=== PATIENT | male | born 1965 ===

== ENCOUNTER 2020-03-09 09:57 | Outpatient (REF) | payer MEDICARE, MEDICAID, SELFPAY | END 2020-03-09 09:58 | disposition home or self-care (01) | LOC: HO.HAP 09:57 | PROVIDERS: PCP Internal Medicine; Referring Provider Internal Medicine; Visit Provider Internal Medicine | DX: Z46.1 Encounter for fitting and adjustment of hearing aid (principal) | CPT/HCPCS: V5266 ==

== ENCOUNTER 2020-06-28 10:54 | Outpatient (REF) | payer MEDICARE, MEDICAID, SELFPAY | END 2020-06-28 10:55 | disposition home or self-care (01) | LOC: HO.HAP 10:54 | PROVIDERS: Visit Provider Internal Medicine | DX: Z46.1 Encounter for fitting and adjustment of hearing aid (principal) | CPT/HCPCS: V5266 ==

== ENCOUNTER 2020-09-23 16:17 | Outpatient (REF) | payer MEDICARE, MEDICAID, SELFPAY | END 2020-09-23 16:18 | disposition home or self-care (01) | LOC: HO.HAP 16:17 | PROVIDERS: Visit Provider Internal Medicine | DX: Z46.1 Encounter for fitting and adjustment of hearing aid (principal); H90.3 Sensorineural hearing loss, bilateral | CPT/HCPCS: V5266 ==

== ENCOUNTER 2020-11-18 10:17 | Outpatient (REF) | payer MEDICARE, MEDICAID, SELFPAY ==
--- NOTE | 2020-11-18 13:32 | MHC.AU.HFU ---
Hearing Instrument Follow-Up- Binaural Date of Visit: 11/18/20 Right Ear: Neon Sign Installer: Phonak Model: Audeo B50-312 Serial Number: [id number] Repair Warranty: 09/09/2019 Loss and Damage Warranty: 09/09/2019 Battery Size: 312 Horizontal Boring Mill Operator: 1xS Type of Dome: Small Closed Type of Wax Guard: CeruStop Dispensed By: [facility] Date of Fittin06/19/2017 Left Ear: Neon Sign Installer: Phonak Model: CROS B-312 Serial Number: [id number] Repair Warranty: 09/09/2019 Loss and Damage Warranty: Loss and Damage used for the left instrument Battery Size: 312 Tubing: Size 1 slim CROS tube Type of Dome: Small Open Dispensed By: [facility] Date of Fittin06/19/2017 Follow-Up Summary: Patient was seen for audiological re-evaluation (see report for details). Patient has a slight overall decrease in his right-sided thresholds. Hearing aid maintenance performed. Domes replaced. Microphones vacuumed. Battery compartments cleaned. Possible rust noted in battery door of right hearing aid- put both instruments in the clothespin drier operator for several minutes as a precaution. Both instruments are working appropriately after maintenance. Hearing aid programming was updated with today's thresholds. Feedback manager field service was re-run. Patient was pleased with the change, and did not feel any additional adjustments were necessary. Recommendations: Hearing instrument follow-up or maintenance as needed. Please contact our clinic with any questions or concerns. Diagnosis Code(s): Primary Diagnosis: H90.3 Bilateral Sensorineural Hearing Loss Signature: Provider: Nain Hussein, RAJIV-A
--- NOTE | 2020-11-18 13:34 | MHC.AU.AHA ---
Adult Audiological Evaluation Date of Visit: 11/18/20 Reason for Appointment: History of asymmetrical hearing loss (left ear worse). Patient suspects he has had a change in hearing. He reports that, at work and home, people have been saying he is talking louder than usual. The last time people noticed him talking loudly was before he received his hearing aids. Patient has had profound sensorineural hearing loss in his left ear since 1999, after receiving blunt trauma to the left side of his head. Previous Hearing Test Results: At [facility] on 05/28/2017- Right: moderate rising to mild and sloping to severe sensorineural hearing loss. Left ear was not tested as a long-standing history of profound sensorineural hearing loss has already been established. Hearing Instrument History- Right Ear: Chief Load Dispatcher: [employer] Model: Audeo B50-312 Serial Number: [id number] Battery Size: 312 Repair Warranty: 09/09/2019 Loss and Damage Warranty: 09/09/2019 Dispensed By: [facility] Date of Fittin06/19/2017 Hearing Instrument History- Left Ear: Chief Load Dispatcher: Augustine Temperature Managementak Model: CROS B-312 Serial Number: [id number] Battery Size: 312 Warranty: 09/09/2019 Loss and Damage Warranty: Loss and Damage used for the left instrument Dispensed By: [facility] Date of Fittin06/19/2017 Otoscopy: Right Ear: Unremarkable Left Ear: Unremarkable Hearing Evaluation: Transducer(s) Used: Insert Earphones Method: Conventional Audiometry Stimuli Used: Pure Tones Right Ear: Description of Hearing: Mild to severe sensorineural hearing loss Left Ear: Description of Hearing: Profound sensorineural hearing loss Speech Recognition Threshold (SRT): Method Used: Recorded Lists Stimuli Used: Spondee Words Right Ear: 30 dBHL Left Ear: Did not test due to known profound hearing loss Word Discrimination: Method: Recorded Lists Word Lists Used: W-22 Right Ear: 100% at 70 dBHL Left Ear: Did not test due to known profound hearing loss Most Comfortable Level (MCL): Right Ear: 70 dBHL Left Ear: Did not test due to known profound hearing loss Comparison: Compared to the most recent evaluation: Thresholds have decreased in the right ear Recommendations: Audiological re-evaluation in one year. See Hearing Aid Follow-Up note for more information. Diagnosis: Primary Diagnosis: H90.3 Bilateral Sensorineural Hearing Loss Signature: Provider: Nain Hussein, RAJIV-A
== END 2020-11-18 10:18 | disposition home or self-care (01) ==
LOC: HO.SH 10:17
PROVIDERS: Visit Provider Internal Medicine
DX: Z46.1 Encounter for fitting and adjustment of hearing aid (principal); H90.3 Sensorineural hearing loss, bilateral
CPT/HCPCS: 92557; 92593

== ENCOUNTER 2021-01-18 15:11 | Outpatient (REF) | payer MEDICARE, MEDICAID, SELFPAY | END 2021-01-18 15:12 | disposition home or self-care (01) | LOC: HO.HAP 15:11 | PROVIDERS: Visit Provider Internal Medicine | DX: Z46.1 Encounter for fitting and adjustment of hearing aid (principal); H90.3 Sensorineural hearing loss, bilateral | CPT/HCPCS: V5266 ==

== ENCOUNTER 2021-04-28 13:35 | Outpatient (REF) | payer MEDICARE, MEDICAID, SELFPAY | END 2021-04-28 13:36 | disposition home or self-care (01) | LOC: HO.HAP 13:35 | PROVIDERS: Visit Provider Internal Medicine | DX: Z46.1 Encounter for fitting and adjustment of hearing aid (principal); H90.3 Sensorineural hearing loss, bilateral | CPT/HCPCS: V5266 ==

== ENCOUNTER 2021-07-28 14:10 | Outpatient (REF) | payer MEDICARE, MEDICAID, SELFPAY | END 2021-07-28 14:11 | disposition home or self-care (01) | LOC: HO.HAP 14:10 | PROVIDERS: Visit Provider Internal Medicine | DX: Z46.1 Encounter for fitting and adjustment of hearing aid (principal); H90.3 Sensorineural hearing loss, bilateral | CPT/HCPCS: V5266 ==

== ENCOUNTER 2021-11-24 15:33 | Outpatient (REF) | payer SELFPAY | END 2021-11-24 15:34 | disposition home or self-care (01) | LOC: HO.HAP 15:33 | PROVIDERS: Visit Provider Internal Medicine | DX: Z46.1 Encounter for fitting and adjustment of hearing aid (principal); H90.3 Sensorineural hearing loss, bilateral | CPT/HCPCS: V5267 ==

== ENCOUNTER 2021-11-24 15:41 | Outpatient (REF) | payer MEDICARE, MEDICAID, SELFPAY | END 2021-11-24 15:42 | disposition home or self-care (01) | LOC: HO.HAP 15:41 | PROVIDERS: Visit Provider Internal Medicine | DX: Z46.1 Encounter for fitting and adjustment of hearing aid (principal); H90.3 Sensorineural hearing loss, bilateral | CPT/HCPCS: V5266 ==

== ENCOUNTER 2022-02-28 14:58 | Outpatient (REF) | payer MEDICAID, SELFPAY | END 2022-02-28 14:59 | disposition home or self-care (01) | LOC: HO.HAP 14:58 | PROVIDERS: Visit Provider Internal Medicine | DX: Z13.89 Encounter for screening for other disorder (principal) ==

== ENCOUNTER 2022-05-14 12:19 | Outpatient (REF) | payer MEDICARE, MEDICAID, SELFPAY ==
--- NOTE | 2022-05-14 13:46 | MHC.AU.HA1 ---
Hearing Aid Evaluation Date of Visit: 05/14/22 Historical Information:Description of Hearing: Right Ear: Within normal through 2kHz steeply sloping to severe sensorineural hearing loss; Left Ear: Profound sensorineural hearing loss Current personal amplification information: Phonak Audeo [id number] and CROS B-312 Summary: Jimmy's current hearing aids were sent to [employer] for repair in February 2022. Per [employer], the hearing aids were damaged beyond repair. Jimmy is eligible for new hearing aids via Medicaid insurance in June 2022. Will need prior authorization to fit hearing aids before then. Jimmy opted for rechargeable hearing aids in upgraded technology. He is looking forward to being able to connect his hearing aid to his cell phone. Hearing Aid Prescription: Based on the individual?s shared listening needs, communication environments, dexterity, desire for connectivity, and personal preferences, the following prescription for amplification has been made: Right ear: Make, Model, Color: Phonak Audeo P70-R Color: Sandalwood Battery Size: Rechargeable Wallpaperer Helper/Slim Tube: 1M Type of Earmold/Dome/CShell/SlimTip: Small open dome Left ear: Make, Model, Color: Phonak CROS P-R Color: Sandalwood Battery Size: Rechargeable Wallpaperer Helper/Slim Tube: 1 Type of Earmold/Dome/CShell/SlimTip: Small open dome Plan of Care: Patient wishes to purchase hearing aids as prescribed Action Taken/Action Needed:. Prior authorization to be requested. Medical Clearance to be requested from PCP/ENT. Hearing Instrument Fitting to be scheduled when materials arrive Primary Diagnosis: H90.3 Bilateral Sensorineural Hearing Loss Signature: Provider: Michelle Garcia, [facility]
--- NOTE | 2022-05-14 13:48 | MHC.AU.MED ---
Medical Clearance for Hearing Instrumentation Date: 05/14/22 Patient Name: Jimmy Sanchez Date of : 1965 Primary Care Provider: Ashleigh Newman MD We have seen your patient on 05/14/22 and have determined that they are a candidate for amplification (See accompanying report). Specifically, they would benefit from: Hearing aid use in both ears - BiCROS system There is a statute that addresses Medical Evaluation Requirements prior to fitting a patient with a hearing aid. According to [place] statute 265 CMR:6.03(1), (a) General. Except as provided in 265 CMR 6.03(1)(b), a health technician hearing shall not sell a hearing aid unless the prospective user has presented to the health technician hearing a written statement signed by a licensed physician that states that the patient's hearing loss has been medically evaluated and the patient may be considered a candidate for a hearing aid. The medical evaluation must have taken place within the preceding six months. Please note: Due to the [place] Statute referenced above, we cannot accept a signature other than that of a licensed physician. SQL SERVER DBA DEVELOPER and PA signatures cannot be accepted. I am in agreement with the above recommendation. There is no medical contraindication for hearing instrumentation. Physician Signature Date Physician Name (Printed)
--- NOTE | 2022-05-14 14:25 | MHC.AU.MED ---
Medical Clearance for Hearing Instrumentation Date: 05/14/22 Patient Name: Jimmy Sanchez Date of : 1965 Primary Care Provider: Justice Butcher MD We have seen your patient on 05/14/22 and have determined that they are a candidate for amplification (See accompanying report). Specifically, they would benefit from: Hearing aid use in both ears - BiCROS System There is a statute that addresses Medical Evaluation Requirements prior to fitting a patient with a hearing aid. According to [place] statute 265 CMR:6.03(1), (a) General. Except as provided in 265 CMR 6.03(1)(b), a hearing aide technician shall not sell a hearing aid unless the prospective user has presented to the hearing aide technician a written statement signed by a licensed physician that states that the patient's hearing loss has been medically evaluated and the patient may be considered a candidate for a hearing aid. The medical evaluation must have taken place within the preceding six months. Please note: Due to the [place] Statute referenced above, we cannot accept a signature other than that of a licensed physician. BRAIDING OPERATOR and PA signatures cannot be accepted. I am in agreement with the above recommendation. There is no medical contraindication for hearing instrumentation. Physician Signature Date Physician Name (Printed)
== END 2022-05-14 12:20 | disposition home or self-care (01) ==
LOC: HO.SH 12:19
PROVIDERS: Visit Provider Internal Medicine
DX: Z01.118 Encounter for examination of ears and hearing with other abnormal findings (principal); H90.3 Sensorineural hearing loss, bilateral
CPT/HCPCS: 92557; 92591

== ENCOUNTER 2022-06-20 14:29 | Outpatient (REF) | payer MEDICARE, MEDICAID, SELFPAY ==
--- NOTE | 2022-06-20 15:13 | MHC.AU.HA2 ---
Hearing Instrument Fitting- Adult- Binaural Date of Visit: 06/20/22 Hearing Instruments Dispensed: Right Ear: Make, Model, Color, Serial Number: Lewis Audeo P70-R SN: [id number] Color: Sandalwood Crosscutter Repair Warranty: 08/27/2025 Crosscutter Loss and Damage Warranty: 08/27/2025 [facility] Service Plan: 06/21/2023 Battery Size: Rechargeable Biology Research Assistant/Slim Tube: 1M Earmold/Dome/CShell/SlimTip: Small open dome Type of Wax Guard: CeruShield Left Ear: Make, Model, Color, Serial Number: Lewis CROS P-R SN: [id number] Color: Sandalwood Crosscutter Repair Warranty: 08/27/2025 Crosscutter Loss and Damage Warranty: 08/27/2025 [facility] Service Plan: 06/20/2022 Battery Size: Rechargeable Biology Research Assistant/Slim Tube: 1 CROS wire Earmold/Dome/CShell/SlimTip: Small open dome Type of Wax Guard: CeruShield Accessories/Assistive Technology: Phonak Home Health Care Provider Case Combi Summary of Fitting: Performed feedback assistant merchandise manager and real ear measurements. Reviewed care, use, and rechargeability including manually turning on/off, volume control use, and changing domes/wax guards. As a long time hearing aid user, Jimmy was familiar with every day maintenance and able to insert and remove the hearing aids with ease. He is happy to have hearing aids again and especially excited for the ability to connect to his cell phone. Paired to his cell phone and confirmed successful connection in office. Did not download Entreda scott at this time. Recommendations: Patient does not feel follow-up is necessary at this time. Hearing Instrument maintenance in 6 months, or sooner if needed. Recommendations (Other): Jimmy will call if any concerns arise. Diagnosis Code(s): Primary Diagnosis: H90.3 Bilateral Sensorineural Hearing Loss Signature: Provider: Michelle Garcia, [facility]
== END 2022-06-20 14:30 | disposition home or self-care (01) ==
LOC: HO.HAP 14:29
PROVIDERS: Visit Provider Internal Medicine
DX: Z46.1 Encounter for fitting and adjustment of hearing aid (principal); H90.3 Sensorineural hearing loss, bilateral
CPT/HCPCS: V5011; V5020; V5211; V5221; V5240

== ENCOUNTER 2023-05-10 10:45 | Outpatient (REF) | payer MEDICARE, MEDICAID, SELFPAY ==
--- NOTE | 2023-05-10 11:53 | MHC.AU.HA3 ---
Hearing Instrument Follow-Up- Binaural Date of Visit: 05/10/23 Right Ear: Make, Model, Color, Serial Number: Lewis Audeo P70-R SN: [id number] Color: Sandalwood Cleaning Professional Repair Warranty: 08/27/2025 Cleaning Professional Loss and Damage Warranty: 08/27/2025 [facility] Service Plan: 06/21/2023 Battery Size: Rechargeable Senior Designer/Art Director/Slim Tube: 1M Earmold/Dome/CShell/SlimTip:Small open dome (no retention tail) Type of Wax Guard: CeruShield Dispensed By: [facility] Date of Fittin06/20/2022 Left Ear: Make, Model, Color, Serial Number: Lewis CROS P-R SN: [id number] Color: Sandalwood Cleaning Professional Repair Warranty: 08/27/2025 Cleaning Professional Loss and Damage Warranty: 08/27/2025 [facility] Service Plan: 06/21/2023 Battery Size: Rechargeable Senior Designer/Art Director/Slim Tube: 1 CROS wire Earmold/Dome/CShell/SlimTip: Small open dome (no retention tail) Type of Wax Guard: CeruShield Dispensed By: [facility] Date of Fittin06/20/2022 Follow-Up Summary: Fit L&D replacements. Jimmy reported he also lost his child care associate, which was initially not reported or recorded on the L&D form. Provided a loaner child care associate, cord, and wall plug. Ordered a new child care associate from [employer]. Recommendations: Patient will be contacted when materials have arrived. Recommendations (Other): Upon arrival, Jimmy can hot die picker the new child care associate and return the loaner - does not need an appointment. Diagnosis Code(s): Primary Diagnosis: H90.3 Bilateral Sensorineural Hearing Loss Signature: Provider: Michelle Garcia, [facility]
== END 2023-05-10 10:46 | disposition home or self-care (01) ==
LOC: HO.HAP 10:45
PROVIDERS: Visit Provider Internal Medicine
DX: Z13.89 Encounter for screening for other disorder (principal)

== ENCOUNTER 2023-05-17 10:06 | Outpatient (REF) | payer MEDICARE, MEDICAID, SELFPAY | END 2023-05-17 10:07 | disposition home or self-care (01) | LOC: HO.HAP 10:06 | PROVIDERS: Visit Provider Internal Medicine | DX: Z13.89 Encounter for screening for other disorder (principal) ==

== ENCOUNTER 2025-01-12 12:36 | Outpatient (REF) | payer MEDICARE, MEDICAID, SELFPAY | END 2025-01-12 12:37 | disposition home or self-care (01) | LOC: HO.HAP 12:36 | PROVIDERS: Visit Provider Internal Medicine | DX: Z13.89 Encounter for screening for other disorder (principal) ==

== ENCOUNTER 2025-01-14 13:39 | Outpatient (REF) | payer MEDICARE, MEDICAID, SELFPAY ==
--- OUTSIDE RECORDS SUMMARY | 2025-01-14 15:12 | XMS_ITS | Encounter Summary ---
Author Organization [facility] [place] [address] Care Team Providers Care Auto Detailer Name Role Phone Katie Salmeron MD Primary Care Provider Encounter Details Date Type Department Care Team (Late Contact Info) Description 05/12/2024 Lab Requisition [facility] - Main Lab [address] [facility] [place] [address] Norberto Calvillo, BOBBI [address] [place] [address] Calculus of ureter; Urinary tract infection, site not specified Social History Tobacco Use Types Packs/Day Years Used Date Smoking Tobacco: Former Cigarettes Q uit: 10/03/2016 Smokeless Tobacco: Never Alcohol Use Standard Drinks/Week Comments No 0 (1 standard drink = 0.6 oz pur e alcohol) Sex and Gender Information Value Date Recorded Sex Assigned at Male 07/27/2024 8:32 AM EDT Legal Sex Male 12:07 AM EST Gender Identity Male 07/27/2024 8:32 AM EDT Sexual Orientation Choose not to disclose 2024 8:32 AM EDT documented as of this encounter Plan of Treatment Upcoming Encounters Date Type Department Care Team (Late Contact Info) Description 03/22/2025 3:30 PM EST Office Visit Pulmonology - [place] [address] [facility] [address] [address] [facility] [address] [place] [address] John Tyson MD [address] [place] [address] documented as of this encounter Procedures Procedure Name Priority Date/Time Associated Diagnosis Comments CULTURE URINE Routine 05/12/2024 7:40 AM EST Calculus of ureter Urinary tract infection, site not specified documented in this encounter Results * Culture urine (05/12/2024 7:40 AM EST) Culture, Urine No growth 05/13/2024 7:48 AM EST [facility] Urine Urine specimen obtained by clean catch procedure / Unknown 05/12/2024 7:40 AM EST 05/12/2024 2:49 PM EST us [facility] MICROBIOLOGY - GE NERAL ORDERABLES Final Result [facility] [address] [place] [address], documented in this encounter Visit Diagnoses Diagnosis Calculus of ureter Urinary tract infection, site not specified documented in this encounter Care Teams Auto Detailer Relationship Specialty Start Date End Date Katie Salmeron MD [address] [place] [place] [address] PCP - General 02/26/22 documented as of this encounter
--- OUTSIDE RECORDS SUMMARY | 2025-01-14 15:12 | XMS_ITS | Clinical Summary ---
Author Organization [address] Address [address] [place] [address] Phone Care Team Providers Care Equipment Mechanic Specialist Name Role Phone Katie Salmeron MD Primary Care Provider Allergies Active Allergy Reactions Criticality Noted Date Comments Lisinopril Cough Low 02/24/2019 Opioids - Morphine Analogues 025 IN RECOVERY Medications inhalat.spacing dev,large mask spacer Use with albuterol inhaler 9 Active albuterol HFA (PROAIR HFA ; PROVENTIL HFA ; VENTOLIN HFA) 90 mcg/actuation inhaler Inhale 2 Puffs into the lungs every 4 hours as needed for Shortness of Breath. 9 Active amLODIPine (NORVASC) 10 mg tablet Take 1 tablet (10 mg total) by mouth 1 (one) time each day. 2 Active cetirizine (ZyrTEC) 10 mg tablet Take 1 tablet (10 mg total) by mouth 1 (one) time each day. 2 Active loratadine (CLARITIN) 10 mg tablet Take 1 tablet (10 mg total) by mouth 1 (one) time each day. 2 Active naproxen (NAPROSYN) 500 mg tablet Take 1 tablet by mouth 2 times daily (with meals) for 30 days. As needed for pain. 1 Active sertraline (ZOLOFT) 50 mg tablet Take 1 Tablet by mouth daily. Take with food 2 Active omeprazole-sodiu m bicarbonate 20-1,680 mg packet Take 1 capsule by mouth. 4 Active losartan (COZAAR) 25 mg tablet Take 1 tablet (25 mg total) by mouth. 4 Active cefpodoxime (VANTIN) 100 mg tablet TAKE 2 TABLET BY MOUTH EVERY 12 HOURS,X7 DAYS 5 Active ofloxacin (FLOXIN) 0.3 % otic solution INSTILL 3 DROPS INTO AFFECTED EAR(S) 4 TIMES DAILY X 7 DAYS 5 Active omeprazole (PriLOSEC) [address] capsule Take 1 capsule (20 mg total) by mouth 1 (one) time each day if needed. 5 Active oseltamivir (TAMIFLU) 75 mg capsule Take 1 capsule (75 mg total) by mouth every 12 (twelve) hours. for 5 days 5 Active Transderm-Scop 1 mg over 3 days patch 3 day Apply 1 patch topically. 4 Active Breo Ellipta 100-25 mcg/dose inhaler Inhale 1 puff by mouth 1 (one) time each day. 60 each 5 Active umeclidinium (Incruse Ellipta) 62.5 mcg/actuation inhalation Inhale 1 puff by mouth 1 (one) time each day. 1 each 3 5 Active Active Problems Problem Noted Date Diagnosed Date Nephrolithiasis 11/16/2020 Overview (04/11/2024): Incidental finding CT scan 11/02 Colon polyp 06/25/2020 Overview (04/11/2024): 07/03; rpt colo 2yr d/t suboptimal prep Abnormal EKG 03/20/2019 Overview (04/11/2024): Borderline qtc on EKG 03/20/2019 Nonspecific T wave abnormality COPD (chronic obstructive pu lmonary disease) (CMS/HCC V24, CMS/HCC V28) 03/20/2019 Overview (04/11/2024): Dr Najeebi Anxiety 06/30/2018 HTN (hypertension) 02/03/2014 Cluster headache 01/16/2014 Hearing loss 01/16/2014 History of drug abuse ([facility] V24, [facility] V28) 12/03/2013 Overview (04/11/2024): Opiates Immunizations Immunization Administration Dates Next Due Moderna SARS-CoV-2 COVID-19, mRNA, LNP-S, preservative free 03/16/2021 Surgical History Surgery Date Site/Laterality Comments OTHER SURGICAL HISTORY 09/16/15 PROCEDURE: ---- OTHER ----; COMMENT: dental surgery Medical History Medical History Date Comments Headache(784.0) 06/29/2013 DX:Headache(784. 0) Family History Medical History Relation Name Comments Heart attack Father Hypertension Father Hypertension Mother Stroke Mother Heart attack Paternal Grandmother Hypertension Sister 1 Diabetes Neg Hx Other cancer Neg Hx Relation Name Status Comments Brother Alive Childhood epile psy Father (Age 47) [place] (age 47 ), HTN Maternal Grandmother Alive Mother (Age 50) HTN, CVA Paternal Grandmother Sister 1 Alive Sister 2 Alive Sister 3 Alive Social History Tobacco Use Types Packs/Day Years [...] not to disclose 2024 8:32 AM EDT Obstetrics History Last Filed Vital Signs Vital Sign Reading Time Taken Comments Blood Pressure 140/88 09/17/2024 3:36 PM EDT Pulse 87 09/17/2024 3:36 PM EDT Temperature 36.4 C (97.5 F) 09/17/2024 3:36 PM EDT Respiratory Rate - - Oxygen Saturation 97% 09/17/2024 3:36 PM EDT Inhaled Oxygen Concentration - - Weight 83 kg (183 lb) 09/17/2024 3:36 PM EDT Height - - Body Mass Index - - Plan of Treatment Upcoming Encounters Date Type Department Care Team (Late st Contact Info) Description 03/22/2025 3:30 PM EST Office Visit Pulmonology - [place] [address] [facility] [address] [place] [address] John Tyson MD [address] [place] [address] Health Maintenance Due Date Last Done Comments Hepatitis B Vaccines (1 of 3 - 19+ 3-dose series) 1985 Zoster Vaccines (1 of 2) 2016 Pneumococcal Vaccine: 50+ Years (3 of 3 - PCV20 or PCV21) 05/27/2019 05/27/2014, 03/31/2014 HIV Screening 03/24/2022 Medicare Annual Wellness Visit 03/24/2022 Social Influencers of Health Screening 03/24/2022 Hypertension/CHF/CAD Annual BMP Blood Test 06/15/2022 06/15/2021 Colorectal Cancer Screening: Colonoscopy 06/24/2022 06/24/2020 Depression Screening 04/15/2024 COVID-19 Vaccine (4 - 2024-2 6 season) 2024 03/16/2021, 06/15/2020, 05/18/2020 Influenza Vaccine (#1) 2024 03/31/2014 Cholesterol Screening (Lipid Panel) 06/15/2026 06/15/2021 DTaP,Tdap,and Td Vaccines (3 - Td or Tdap) 07/04/2033 07/05/2023, 05/19/2009 RSV Immunization Adult Patients (1 - 1-dose 75+ series) 2041 Hepatitis C Screening Completed 05/06/2020 HIB Vaccines Aged Out No longer eligi ble based on patient's age to complete this topic HPV Vaccines Aged Out No longer eligi ble based on patient's age to complete this topic Hepatitis A Vaccines Aged Out No long er eligible based on patient's age to complete this topic IPV Vaccines Aged Out No longer eligi ble based on patient's age to complete this topic MMR Vaccines Aged Out No longer eligi ble based on patient's age to complete this topic Meningococcal ACWY Vaccine Aged Out N o longer eligible based on patient's age to complete this topic Meningococcal B Vaccine Aged Out No l onger eligible based on patient's age to complete this topic RSV Immunization Patients Under 20 months Aged Out No longer eligible b ased on patient's age to complete this topic Varicella Vaccines Aged Out No longer eligible based on patient's age to complete this topic Procedures Procedure Name Priority Date/Time Associated Diagnosis Comments ANNUAL BMP BLOOD TEST Routine 06/15/2021 LIPID PANEL Routine 06/15/2021 COLONOSCOPY Routine 06/24/2020 HEPATITIS C SCREENING Routine 05/06/2020 from Last 3 Months or Most Recently Relevant to Health Maintenance Results * Annual BMP Blood Test (06/15/2021) Pathologist [facility] Annual BMP Blood Test ABSTRACTED [facility] Provider HEALTH MAINTENANCE Final Result * (ABNORMAL) Lipid panel (06/15/2021) [facility] LDL/HDL Ratio 3 0 - 4 Triglycerides 236(A) 0 - 150 mg/dL Cholesterol 177 0 - 200 mg/dL HDL 56 >=40 mg/dL LDL Cholesterol 74 0 - 100 mg/dL Blood Venous blood specimen / Unknown [facility] LAB BLOOD ORDERABLES Carina l Result * Colonoscopy (06/24/2020) [facility] Colonoscopy NO INTERPRETATION , ABSTRACTED Anatomical Region Laterality Modality Other [facility] Provider HEALTH MAINTENANCE Final Result * Hepatitis C Screening (05/06/2020) [facility] Hepatitis C Screening ABSTRACTED [facility] Provider HEALTH MAINTENANCE Final Result from Last 3 Months or Most Recently Relevant to Health Maintenance Insurance MEDICARE MEDICAID - [place] Care Teams Equipment Mechanic Specialist Relationship Specialty Start Date End Date Katie Salmeron MD [address] [place] [address] PCP - General 02/26/22
== END 2025-01-14 13:40 | disposition home or self-care (01) ==
LOC: HO.HAP 13:39
PROVIDERS: PCP Internal Medicine; Visit Provider Internal Medicine
DX: Z46.1 Encounter for fitting and adjustment of hearing aid (principal); H90.3 Sensorineural hearing loss, bilateral
CPT/HCPCS: 92593; 99499